=== PATIENT | female | born 1975 | race African-American/Black ===

== ENCOUNTER 2016-11-14 16:27 | Emergency (ER) | payer MEDICARE, OTHER ==
[~2016-11-14] VITALS: Ht 167.6 cm; Wt 82.0 kg
[~2016-11-14 16:27] MED LIST: AUGM875T PO; DEPA250T2 PO; KLON2TAB PO; METH500T3 PO; NAPR550 PO; QUET1TAB66 PO; ZOLO20CO PO
[2016-11-14 16:31] VITALS: BP 211/102; PULSE 85; RESP 15; TEMP 98.2; O2SAT 98
--- NOTE | 2016-11-14 16:39 | PD ---
Physical Exam Date Seen by Provider: November 14, 2016 Time Seen by Provider: 16:36 Narrative Pt is a 41 year old female presenting to the ED for evaluation of a possible UTI. She reports frequency, foul odor, urgency, vaginal discharge. VSS, awaiting bed placement. Data Data Last Documented VS Vital Signs Date Time Temp Pulse Resp B/P Pulse Ox O2 Delivery O2 Flow Rate FiO2 11/14/16 16:31 98.2 85 15 211/102 98 MDM Supervised Visit with COLE: Heidi Bailey November 14, 2016 16:38
[2016-11-14 17:33] LABS: BLOOD, URINE NEG (NEG); COMMENT (UR) CULT NOT INDICATED; CULTURE IF INDICATED CULT NOT INDICATED; GLUCOSE,URINE NEG (NEG); KETONE, URINE NEG (NEG); NITRITE,URINE NEG (NEG); PH, URINE 5.5 (5.0-8.5); SQUAMOUS EPITHELIAL CELL URINE 2 /hpf (0-5); URINE COLOR LIGHT-YELLOW (YELLW/STRAW)
--- NOTE | 2016-11-14 18:22 | PD ---
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 Symptom onset 3 weeks ago. Associated with a foul smell. The vaginal discharge is white in color. Associated with a suprapubic pressure. She does endorse increased urinary frequency. Denies dysuria, flank pain, fevers or chills, nausea or vomiting. Last menstrual period October 27. She is sexually active with one partner, long-term, for the past 3 years. No other complaints. PFSH Past Medical History Autoimmune Disease: No Blood Disorders: No Bipolar Disorder: Yes Anxiety: Yes Depression: Yes Cancer: No Cardiovascular Problems: Yes (HTN) Hypertension: Yes Migraines: Yes Schizophrenia: Yes LMP: 10/27/16 : 5 Para: 4 Miscarriage: 1 : 1 Tubal Ligation: Yes Past Surgical History AICD: No Appendectomy: Yes (2002) Section: Yes Genitourinary Surgery: No Pacemaker: No Other Surgery: Yes (PIL. CYSTS) Social History Alcohol Use: No Tobacco Use: Yes (1 PACK Q 3 DAYS) Substance Use: No Allergies-Medications (Allergen,Severity, Reaction): Coded Allergies: Percocet (Verified Allergy, Mild, Nausea/Vomiting, 02/22/14) Codeine (Verified Adverse Reaction, Intermediate, N/V, 02/22/14) Reported Meds & Prescriptions Reported Meds & Active Scripts Active Augmentin (Amoxicillin-Clavulanate) 875-125 mg Tab 875 Mg PO BID 10 Days not for use in CrCl <30 ml/min. Reported Seroquel (Quetiapine Fumarate) 300 Mg Tab 350 Mg PO BID Review of Systems Except as stated in HPI: all other systems reviewed are Neg Physical Exam Narrative Examined in the presence of a female nurse GENERAL: Well-developed well-nourished female in no acute distress SKIN: Warm and dry. HEAD: Atraumatic. Normocephalic. EYES: Pupils equal and round. No scleral icterus. No injection or drainage. ENT: No nasal bleeding or discharge. Mucous membranes pink and moist. NECK: Trachea midline. No JVD. CARDIOVASCULAR: Regular rate and rhythm. No murmur appreciated. RESPIRATORY: No accessory muscle use. Clear to auscultation. Breath sounds equal bilaterally. GASTROINTESTINAL: Abdomen soft, non-tender, nondistended. Pelvic examination in the presence of a female nurse: There is some discharge noted in the vaginal canal. There is a 1 cm abnormal flesh-colored growth on the cervix. Nontender. No cervical motion tenderness or tenderness. No palpable masses. MUSCULOSKELETAL: No obvious deformities. No clubbing. No cyanosis. No edema. NEUROLOGICAL: Awake and alert. No obvious cranial nerve deficits. Motor grossly within normal limits. Normal speech. Data Data Last Documented VS Vital Signs Date Time Temp Pulse Resp B/P Pulse Ox O2 Delivery O2 Flow Rate FiO2 11/14/16 19:15 71 17 221/121 100 Room Air 11/14/16 16:31 98.2 Orders Urinalysis - C+S If Indicated (11/14/16 16:39) Ed Urine Pregnancytest Poc (11/14/16 16:48) Gc And Chlamydia Pcr (11/14/16 18:19) Wet Prep Profile (11/14/16 18:19) Azithromycin Powd Pack (Zithromax Powd P (11/14/16 19:00) Ceftriaxone Inj (Rocephin Inj) (11/14/16 19:00) Lidocaine 1% Inj (50 Ml) (Xylocaine 1% I (11/14/16 19:00) Metronidazole (Flagyl) (11/14/16 19:30) Labs Laboratory Tests Test 11/14/16 11/14/16 16:45 18:48 Urine Color LIGHT-YELLOW Urine Turbidity CLEAR Urine pH 5.5 Urine Specific [place] 1.008 Urine Protein NEG mg/dL Urine Glucose (UA) NEG mg/dL Urine Ketones NEG mg/dL Urine Occult Blood NEG Urine Nitrite NEG Urine Bilirubin NEG Urine Urobilinogen LESS THAN 2.0 MG/DL Urine Leukocyte Esterase SMALL Urine RBC 1 /hpf Urine WBC 3 /hpf Urine Squamous Epithelial 2 /hpf Cells Microscopic Urinalysis Comment CULT NOT INDICATED Clue Cells (Wet Prep) NONE SEEN Vaginal Trichomonas (Wet Prep) PRESENT Vaginal Yeast (Wet Prep) NONE SEEN MDM Medical Decision Making Medical Screen Exam Complete: Yes Emergency Medical Condition: Yes Medical Record Reviewed: Yes Differential Diagnosis Vaginosis, vaginitis, trichomoniasis, cervicitis, pelvic inflammatory disease, cystitis Narrative Course Urinalysis is not suggestive of UTI. Urine test is negative. The pelvic examination does reveal an abnormal growth on the cervix. The patient is strongly encouraged to follow-up with a hurl shaker for biopsy. She verbalizes understanding and plans on doing this as an outpatient. Wet Prep is positive for lysis, being treated here with 2 g of Flagyl. She was also empirically given Rocephin and azithromycin pending chlamydia and gonorrhea results. She is stable for discharge. Diagnosis Primary Impression: Lesion of cervix Additional Impression: Trichomoniasis Additional Instructions: Have all partners tested and treated at the [facility] department. As discussed, follow-up with a hurl shaker in regards to the abnormal lesion on her cervix. Return for any emergent medical conditions. Med/Other Pt SpecificInfo: No Change to Meds Disposition: 01 DISCHARGE HOME Condition: Stable Eduardo Finney November 14, 2016 18:22
[2016-11-14] MEDS ORDERED: SERO300T PO (18:39)
[2016-11-14] MEDS ORDERED: LIDOCAINE HCL 1% 50 ML VIAL IM ONE (19:00)
[2016-11-14] MEDS ORDERED: AZITHROMYCIN PWD FOR SUSP 1 GM PACKET PO ONE (19:00)
[2016-11-14] MEDS ORDERED: cefTRIAXone 250 MG VIAL IM ONE (19:00)
[2016-11-14 19:15] VITALS: BP 221/121; PULSE 71; RESP 17; O2SAT 100
[2016-11-14] MEDS ORDERED: metroNIDAZOLE 500 MG TAB PO ONE (19:30)
[2016-11-14] MEDS ORDERED: AMLO10TA2 PO (20:23)
[2016-11-14 20:24] VITALS: BP 237/115; PULSE 74
[2016-11-14] MEDS ORDERED: cloNIDine HCL 0.2 MG TAB PO ONE (20:30)
[2016-11-14 21:14] VITALS: BP 217/113
[2016-11-14 22:48] LABS: CHLAMYDIA PCR DETECTED (NOT DETECT); NEISSERIA PCR NOT DETECTED (NOT DETECT)
== END 2016-11-14 21:15 | disposition home or self-care (01) ==
LOC: NEPD 16:27
DX: N88.9 Noninflammatory disorder of cervix uteri, unspecified (principal); A59.9 Trichomoniasis, unspecified; I10 Essential (primary) hypertension; F17.210 Nicotine dependence, cigarettes, uncomplicated
CPT/HCPCS: 81001; 84703; 87210; 87491; 87591; 96372; 99283; J0696